=== PATIENT | male | born 1965 | race African-American/Black ===

== ENCOUNTER 2016-08-05 01:00 | Emergency (ER) | payer SELFPAY ==
[~2016-08-05] VITALS: Ht 180.3 cm; Wt 72.6 kg
--- NOTE | 2016-08-05 01:00 | NUR ---
[facility] TO ER OF1
--- NOTE | 2016-08-05 01:10 | NUR ---
Patient being evaluated by physician.
--- NOTE | 2016-08-05 01:15 | NUR ---
BIB [facility] [facility] FOR PRE-BOOK PT DENIES N/V/D; SKIN IS PINK/WARM/DRY; AAOX4 WITH EVEN AND STEADY GAIT; LUNGS CLEAR BL; HR EVEN AND REGULAR; PT DENIES ANY FEVER, CP, SOB, OR COUGH AT THIS TIME; PATIENT STATES PAIN OF 0/10 AT THIS TIME; VSS; PATIENT POSITIONED FOR COMFORT; HOB ELEVATED; BEDRAILS UP X2; BED DOWN. ER MD MADE AWARE OF PT STATUS.
[2016-08-05 01:17] VITALS: BP 123/78
[2016-08-05 01:25] VITALS: BP 123/78
--- NOTE | 2016-08-05 01:25 | NUR ---
Patient discharged with v/s stable. Written and verbal after care instructions given and explained. Patient verbalized understanding. Police with in custody. All questions addressed prior to discharge. Advised to follow up with PMD.
== END 2016-08-05 01:25 ==
LOC: MED 01:00
DX: Z02.89 Encounter for other administrative examinations (principal)